=== PATIENT | female | born 1975 | race Caucasian/White ===

== ENCOUNTER → 2021-02-25 10:50 | Outpatient (CLI) | payer OTHER, SELFPAY ==
[2021-02-25 13:18] LABS: Absolute Lymphocyte Count 1.43 X10^3/uL (0.83-4.51); Absolute Neutrophil Count 9.1 X10^3/uL (2.0-7.7); Basophil# 0.03 X10^3/uL; Basophil% 0.3 % (0-1); Eosinophil# 0.24 X10^3/uL; Eosinophils% 2.1 % (0-5); Hematocrit 37.8 % (37-47); Hemoglobin 12.8 g/dL (12.0-15.0); Lymphocyte # 1.43 X10^3/ul (0.83-4.51); Lymphocyte % 12.5 % (19-41); Mean Corp Hgb Conc 33.9 g/dL (32-36); Mean Corpuscular Hgb 29.8 pg (27.0-32.0); Mean Corpuscular Volume 87.9 fL (81-99); Monocyte# 0.61 X10^3/uL; Monocyte% 5.3 % (0-10); NRBC Flagged by Analyzer 0 % (0-5); Neutrophil # 9.11 X10^3/uL (2.7-7.7); Neutrophil % 79.3 % (47-70); Platelet Count 338 K/mm3 (150-450); RBC Distribution Width SD 42.3 fl (35.1-43.9); White Blood Count 11.5 K/mm3 (4.4-11.0)
[2021-02-25 14:06] LABS: HIV - WCH Non-Reactive (Nonreactive); Hepatitis B Surface Antigen Non-Reactive (Nonreactive); Hepatitis C Antibody Non-Reactive (Nonreactive); Rubella IgG Reactive (Nonreactive); Syphilis Antibodies Non-reactive
[2021-02-28 03:07] LABS: Chlamydia By Nucleic Acid AMP Negative (Negative)
[2021-02-28 08:33] LABS: Gonococcus By Nucleic Acid AMP Negative (Negative)
[2021-03-01 10:52] LABS: HPV APTIMA, High Risk Negative (Negative)
== END ==
PROVIDERS: Visit Provider Obstetrics & Gynecology
DX: Z34.82 Encounter for supervision of other normal pregnancy, second trimester (principal)
CPT/HCPCS: 36415; 85025; 86703; 86762; 86780; 86803; 87086; 87340; 87491; 87591; 87624; 88175; G0145

== ENCOUNTER → 2021-03-27 13:19 | Outpatient (CLI) | payer OTHER, SELFPAY ==
[2021-03-27 14:51] LABS: Hematocrit 36.5 % (37-47); Hemoglobin 12.5 g/dL (12.0-15.0); Mean Corp Hgb Conc 34.2 g/dL (32-36); Mean Corpuscular Hgb 30.2 pg (27.0-32.0); Mean Corpuscular Volume 88.2 fL (81-99); Mean Platelet Vol. 9.9 fl (6.2-12.0); Platelet Count 331 K/mm3 (150-450); RBC Distribution Width CV 12.7 % (11.6-14.6); RBC Distribution Width SD 40.9 fl (35.1-43.9); Red Blood Count 4.14 M/mm3 (4.2-5.4); White Blood Count 14.3 K/mm3 (4.4-11.0)
[2021-03-27 15:12] LABS: Glucose Challenge Gest 1H 50g 134 mg/dL (70-140)
== END ==
PROVIDERS: Visit Provider Obstetrics & Gynecology
DX: Z34.83 Encounter for supervision of other normal pregnancy, third trimester (principal)
CPT/HCPCS: 36415; 82950; 85027

== ENCOUNTER → 2021-05-21 16:00 | Outpatient (CLI) | payer OTHER, SELFPAY | PROVIDERS: Visit Provider Obstetrics & Gynecology | DX: Z36.85 Encounter for antenatal screening for Streptococcus B (principal) | CPT/HCPCS: 87081 ==

== ENCOUNTER → 2021-06-18 | Outpatient (CLI) | payer OTHER, SELFPAY | END | disposition home or self-care (01) | LOC: LABSPEC 11:25 | PROVIDERS: PCP Orthopaedic Surgery; Visit Provider Obstetrics & Gynecology | DX: Z03.818 Encounter for observation for suspected exposure to other biological agents ruled out (principal) | CPT/HCPCS: 87635; U0005; U0003 ==

== ENCOUNTER 2021-06-25 06:20 | Inpatient (IN) | payer SELFPAY, OTHER ==
[2021-06-25] VITALS (24 sets, daily range): BP systolic 111–151; BP diastolic 56–87; PULSE 77–103; RESP 18; TEMP 36.6–37.6; O2SAT 95–99; BMI 42.3
[2021-06-25] MEDS: Lactated Ringers 1,000 ML 50 ML IV (06:50)
[2021-06-25 07:05] LABS: Absolute Lymphocyte Count 1.74 X10^3/uL (0.83-4.51); Absolute Neutrophil Count 9.7 X10^3/uL (2.0-7.7); Basophil# 0.05 X10^3/uL; Basophil% 0.4 % (0-1); Eosinophil# 0.13 X10^3/uL; Hemoglobin 13.7 g/dL (12.0-15.0); Lymphocyte # 1.74 X10^3/ul (0.83-4.51); Mean Corp Hgb Conc 35.1 g/dL (32-36); Mean Corpuscular Hgb 30.2 pg (27.0-32.0); Mean Corpuscular Volume 85.9 fL (81-99); Mean Platelet Vol. 10.3 fl (6.2-12.0); Monocyte# 0.68 X10^3/uL; Monocyte% 5.5 % (0-10); NRBC Flagged by Analyzer 0 % (0-5); Neutrophil # 9.66 X10^3/uL (2.7-7.7); Neutrophil % 78.1 % (47-70); Platelet Count 353 K/mm3 (150-450); RBC Distribution Width CV 12.6 % (11.6-14.6); RBC Distribution Width SD 39.6 fl (35.1-43.9); Red Blood Count 4.54 M/mm3 (4.2-5.4); White Blood Count 12.4 K/mm3 (4.4-11.0)
--- NOTE | 2021-06-25 07:11 | PCM.HP.BLA ---
History and Physical Date of Admission: 06/25/21 Chief complaint: Contractions History of present illness: 45-year-old G 11 P7 at 41 weeks and 0 days with JOSE 06/18/2021 by LMP arrives with contractions. Denies headache, visual changes, chest pain, shortness of breath, nausea vomiting, right upper quadrant pain. Patient states good movement. is complicated by AMA on aspirin Obstetric history: G1: 39-week male 12/30/1998 G2: SAB G3: 40-week male 12/10/2020 G4: 40-week female 12/28/2001 G5: 41-week male 03/05/2004 G6: 40-week female 11/29/2006 G7: 40-week female 04/16/2009 G8: 41-week female 05/18/2011 G9: SAB G 10: SAB G 11: Current Past medical history: None Medications: vitamin, aspirin Past surgical history: Tubal ligation 2017 Allergies: No known drug allergies Social history: Denies smoking, use, drug use Family history: Denies history DVT or PE Review of systems: Besides above pertinent positives a full review of systems was performed and found to be negative Physical exam: Vitals: Blood pressure 144/78 pulse 85 General: Normal-appearing no acute distress HEENT: Normocephalic atraumatic no cervical of adenopathy Cardiac/respiratory: Ice accessory muscles, nonlabored breathing Abdomen: Soft, nontender, gravid Pelvic exam: Pending Extremities: No peripheral edema normal peripheral pulses Psych: Normal affect normal demeanor nonpressured speech Labs: White blood cell count 12.4 hemoglobin 13.7 hematocrit 39.0% platelets 353. Assessment plan: This a 45-year-old G 11 P7 at 41 weeks and 0 days in labor Admit labor and delivery CEFM GBS negative Routine orders
--- NOTE | 2021-06-25 11:44 | PN_ITS ---
Progress Note CE /-1, IUPC placed FHR: 135/mod matilda/+accel/no decel [place]: irregular Plan: start pitocin for augmentation of labor. Discussed this and pain control options with patient and in room.
[2021-06-25] MEDS: Oxytocin 30 units/NS 500 ml 30 UNITS/500 ML IV.SOLN IV (12:12)
[2021-06-25] MEDS: Oxytocin 30 units/NS 500 ml 30 UNITS/500 ML IV.SOLN 334 UNITS IV (14:43)
--- NOTE | 2021-06-25 14:54 | EX.PCM.OBRPT ---
Vaginal Delivery Findings Description of Procedure: Normal spontaneous vaginal delivery of a viable male , vertex JULIA. Head and shoulders delivered with ease. Cord cut and clamped. Baby handed off to patient. Placenta delivered via cord traction and fundal massage. No lacerations noted. EBL 300 cc Apgars 8/9
[2021-06-25] MEDS: Acetaminophen 500 MG Tablet 1000 MG PO (16:47)
[2021-06-26] VITALS (10 sets, daily range): BP systolic 109–132; BP diastolic 59–75; PULSE 71–91; RESP 16–18; TEMP 36.5–36.8; O2SAT 85–97
[2021-06-26] MEDS: Acetaminophen 500 MG Tablet 1000 MG PO ×2 (05:34→20:54)
--- NOTE | 2021-06-26 08:12 | PCM.PN.OB ---
Subjective Subjective Patient without complaints. Breast-feeding going well. Minimal vaginal bleeding. Wants to stay until tomorrow. Objective Data Objective Data Vital Signs: Vital Signs Temp Pulse Resp BP Pulse Ox 97.7 F L 85 18 117/74 97 06/26/21 03:38 06/26/21 07:56 06/26/21 03:38 06/26/21 07:56 06/26/21 07:54 Oxygen Delivery Method Room Air Weight: 239 lb Body Mass Index (BMI) 42.3 Intake & Output: Intake and Output for Last 24 Hours 06/24/21 06/25/21 06/26/21 23:59 23:59 23:59 Intake Total 900.50 / 900.50 Output Total 600 / 600 Balance 300.50 / 300.50 Lab / Micro Data Result Diagrams: 06/25/21 06:49 Labs: Laboratory Results - last 24 hr 06/25/21 06:49: Blood Type A POSITIVE, Antibody Screen NEGATIVE
--- NOTE | 2021-06-26 12:18 | NURSING ---
Student charting reviewed Benjie WHEATLEY, [employer] instructor
--- NOTE | 2021-06-26 17:40 | CASEMGMT ---
Social Work Brief Assessment Labor and Delivery Unit Patient Address:[address] [place] [address] Phone number: [phone] (message line) Date of Referral/Notification: 06.25.2021 Time of Referral: 1917 Referred By: Dr. Kendall Franco Date of Intervention: 06.26.2021 Time of Intervention:1739 Reason for Referral: Maternal history of PPD in 2001 Informant: Medical record and mother of baby (MOB) Jazzy Schwarz History: MARCY is a 45 year old female, from the [facility], to the father of baby (FOB) Clark Schwarz. MOB is G12, P8 to 9 after delivering a baby boy, Pritesh Schwarz on 06.25.2021. Infant weighed 10 pounds 8 ounces at . Apgars 8 and 9 at 1 and 5 minutes of life. care started late in the OB office at 24 weeks. Prior deliveries at a local birthing center with exception of 8th child at [facility]. Ages of children range from 22 years old (born 1998) to 3 years old, and now a . Oldest child has congenital deafness and the family does speak sign language to communicate, so family is versed in the languages: sign language (which is signed in Georgian), Georgian, and [place]. MOB works in the home and FOB is a dairy feed mixing operator. MOB with an 8th grade education, which is the norm in the [facility]. MOB reports history of depression in 2001, and the some baby blues after other births. Denies any history of suicidal ideation, planning, intent or attempts; same for harm to others. Denies any issues with substance use. Assessment: Met with MOB in room. The FOB had reportedly gone home to check on the children. MOB reports to have needed supplies but will be getting a few more the. Reports to have a brand new car seat and a sleep space for the baby. Planning to breast feed. MOB reports was shocked at the due to having a sterilization procedure after last . MOB reports after the shock wore off accepted the . MOB reports to feel a connection to the baby and glad to have the baby, reporting belief the is a reason for baby to be here. MOB reports mood is feeling good right now, denies any concerns about baby blues or depression. Report would talk to the FOB if symptoms arise, and would even consider medicine or counseling if needed. MOB reports to have adequate support from older children, with teen daughter being MOB's helper in the coming weeks; live next door to in-laws as well. MOB reports the FOB is good about helping too when MOB needs help. MOB accepted written information on mood and anxiety disorders, what to look for, tips on caring for self, and resources. MOB denies any other needs for home going. MOB handled baby the social work visit and was appropriate and gentle. No voiced concerns by nursing staff regarding parent/child interactions or bonding. Plan: MOB and to home when ready. Information and resources given on mood and anxiety disorders. No further needs requested or indicated. -DILLAN Hussein, OUTSOLE ROUNDER *This note was generated with dotCloud dictation software. It may contain incorrect words, spelling, and punctuation the were not noted in review of the chart prior to signing*
[2021-06-27 02:45] VITALS: BP 104/62; PULSE 79; RESP 18; TEMP 36.7
[2021-06-27 08:52] VITALS: BP 133/68; PULSE 86; PULSE 87; RESP 14; TEMP 36.6; O2SAT 97
--- NOTE | 2021-06-27 10:21 | PCM.PN.OB ---
Subjective Subjective Patient without complaints. Breast-feeding going well. Wants to go home today if baby is able to go. Will discharge to home with routine instructions. Objective Data Objective Data Vital Signs: Vital Signs Temp Pulse Resp BP Pulse Ox 97.9 F 86 14 133/68 H 97 06/27/21 08:52 06/27/21 08:52 06/27/21 08:52 06/27/21 08:52 06/27/21 08:52 Oxygen Delivery Method Room Air Weight: 239 lb Body Mass Index (BMI) 42.3 Intake & Output: Intake and Output for Last 24 Hours 06/25/21 06/26/21 06/27/21 23:59 23:59 23:59 Intake Total 900.50 / 900.50 Output Total 600 / 600 Balance 300.50 / 300.50 Lab / Micro Data Result Diagrams: 06/25/21 06:49
--- NOTE | 2021-06-27 10:22 | PCM.DC ---
Discharge Instructions Diet Discharge Diet: No restrictions Activity Discharge Activity: May Drive (In 1 to 2 days if not taking narcotic pain medication), May Shower and May Take a Tub Bath May resume sexual activity in: 4-6 weeks Additional Activity Instructions:: Nothing in the vagina for 4-6 weeks. You may return to work/school in 6 weeks. Dressing / Incision Call your doctor if you observe: Fever of 101 or Higher, Inability to urinate, Inability to have a bowel movement and Using more than 1 pad per hour Follow Up Care Please Follow Up With: Kendall Franco MD When: Call [phone] to make an appointment with your doctor in 6 weeks. Test Results: Test results from this visit will be discussed in further detail at your follow-up appointment, if applicable. Discharge Plan Admission Admit Date/Time: 06/25/21 06:20 Primary Reason for Your Visit: Vaginal Delivery Attending Provider: Kendall Franco Primary Care Provider: Javi Physician,Laura Primary Discharge Orders/Prescriptions Prescriptions: No Action acetaminophen [Tylenol] 325 mg Tablet 650 mg PO Q6H PRN (Reason: Cramps) RF: 0 1 mg Tablet PO RF: 0 Referrals / Follow Up: Care Physician,No Primary [Primary Care Provider] - Disposition Disposition (needs filled in before D/C Order can be placed): Home, Self Care
== END 2021-06-27 10:40 | disposition home or self-care (01) | DRG 807 ==
PROVIDERS: Student in an Organized Health Care Education/Training Program; Admitting Provider Obstetrics & Gynecology; Visit Provider Obstetrics & Gynecology
DX: O48.0 Post-term pregnancy (principal); Z37.0 Single live birth; Z3A.41 41 weeks gestation of pregnancy
CPT/HCPCS: 59025; 59050; 85025; 86850; 86900; 86901; 99218; J7120; G0378